=== PATIENT | female | born 1990 | race Caucasian/White ===

== ENCOUNTER 2016-12-20 09:16 | Emergency (ER) | payer OTHER ==
[~2016-12-20] VITALS: Ht 152.4 cm; Wt 113.4 kg
--- NOTE | 2016-12-20 09:25 | NUR ---
Patient ambulated to bed 6. RN evaluating patient at bedside.
[2016-12-20 09:28] VITALS: BP 143/96
--- NOTE | 2016-12-20 09:29 | NUR ---
26/F bib self for R EAR PAIN & sore throat for 3 days. DENIES N/V/D; SKIN IS PINK/WARM/DRY; AAOX4 WITH EVEN AND STEADY GAIT; LUNGS CLEAR BL; HR EVEN AND REGULAR; PT DENIES ANY FEVER, CP, SOB, OR COUGH AT THIS TIME; PATIENT STATES PAIN OF 3/10 AT THIS TIME; VSS; PATIENT POSITIONED FOR COMFORT; HOB ELEVATED; BEDRAILS UP X2; BED DOWN. ER MD MADE AWARE OF PT STATUS.
[2016-12-20 09:50] VITALS: BP 128/90
--- NOTE | 2016-12-20 09:50 | NUR ---
Patient discharged with v/s stable. Written and verbal after care instructions given and explained. Patient alert, oriented and verbalized understanding of instructions. Ambulatory with steady gait. All questions addressed prior to discharge. ID band removed. Patient advised to follow up with PMD. Rx of MOTRIN & AUGMENTIN given. Patient educated on indication of medication including possible reaction and side effects. Opportunity to ask questions provided and answered.
== END 2016-12-20 09:50 | disposition home or self-care (01) ==
LOC: MED 09:16
DX: J02.9 Acute pharyngitis, unspecified (principal)

== ENCOUNTER 2019-07-13 09:30 | Emergency (ER) | payer OTHER ==
[~2019-07-13] VITALS: Ht 152.4 cm; Wt 108.9 kg
--- NOTE | 2019-07-13 09:40 | NUR ---
pt taken to ER bed 12
[2019-07-13 09:41] VITALS: BP 143/71
--- NOTE | 2019-07-13 09:44 | NUR ---
C/O 09/26 RIGHT EAR PAIN X TODAY WITH THROAT PAIN, MOIST COUGH, NASAL CONGESTION X 1 WK. SYMPTOMS WORSE AT NIGHT. DENIES FEVER, N/V, DIZZINESS, CONWAY. APPEARS NAD AT THIS TIME. VSS. HX--DENIES RX--MOTRIN
--- NOTE | 2019-07-13 09:47 | NUR ---
DR. SALEH EVALUATING PT AT BEDSIDE
--- NOTE | 2019-07-13 09:49 | NUR ---
PER DR. SALEH, DO NOT NEED URINE SAMPLE.
[2019-07-13] MEDS ORDERED: hydrOXYzine HCL 25 MG TAB PO ONE (09:55)
[2019-07-13] MEDS ORDERED: MECLIZINE 25 MG TAB PO ONE (09:55)
[2019-07-13] MEDS ORDERED: IBUPROFEN 800 MG TAB PO ONE (09:55)
[2019-07-13 10:20] VITALS: BP 143/71
--- NOTE | 2019-07-13 10:20 | NUR ---
Patient discharged with v/s stable. Written and verbal after care instructions given and explained. Patient alert, oriented and verbalized understanding of instructions. Ambulatory with steady gait. All questions addressed prior to discharge. ID band removed. Patient advised to follow up with PMD. Rx of Promethazine DM, Prednisone, and Azithromycin given. Patient educated on indication of medication including possible reaction and side effects. Opportunity to ask questions provided and answered.
== END 2019-07-13 10:20 | disposition home or self-care (01) ==
LOC: MED 09:30
DX: H65.91 Unspecified nonsuppurative otitis media, right ear (principal); J02.9 Acute pharyngitis, unspecified
CPT/HCPCS: 99284; J8597

== ENCOUNTER 2021-08-23 12:16 | Emergency (ER) | payer OTHER ==
[~2021-08-23] VITALS: Ht 152.4 cm; Wt 111.6 kg
[2021-08-23 12:36] VITALS: BP 126/75
--- NOTE | 2021-08-23 14:00 | NUR ---
31/F PRESENTS TO ED WITH C/O SOB, COUGH AND CONGESTION X2 WEEKS. STATES 2 WEEKS AGO SHE TESTED POSITIVE FOR COVID, STATES SHE WAS GIVEN RX OF ABX AND INHALERS BUT STATES NO RELIEF OF SYMPTOMS. DENIES FEVERS, CHILLS OR SORE THROAT.
[2021-08-23] MEDS ORDERED: ALBUTEROL SULFATE/IPRATROPIU 3 ML SOL IH ONE (14:15)
--- NOTE | 2021-08-23 14:43 | NUR ---
PT TO ER BED 11
[2021-08-23] MEDS ORDERED: PRED15SY34 PO (14:51)
--- NOTE | 2021-08-23 15:10 | NUR ---
Patient discharged with v/s stable. Written and verbal after care instructions given and explained. Patient alert, oriented and verbalized understanding of instructions. Ambulatory with steady gait. All questions addressed prior to discharge. ID band removed. Patient advised to follow up with PMD. Rx of Prednisolone given. Patient educated on indication of medication including possible reaction and side effects. Opportunity to ask questions provided and answered.
== END 2021-08-23 15:10 | disposition home or self-care (01) ==
LOC: MED 12:16
DX: J12.82 Pneumonia due to coronavirus disease 2019 (principal); U07.1 COVID-19; E07.9 Disorder of thyroid, unspecified
CPT/HCPCS: 71045; 93005; 94640; 99283

== ENCOUNTER 2022-10-29 21:19 | Emergency (ER) | payer OTHER ==
[~2022-10-29] VITALS: Ht 152.4 cm; Wt 126.6 kg
[~2022-10-29 21:19] MED LIST: PRED15SO54 PO
[2022-10-29 21:32] VITALS: BP 160/74
[2022-10-29 22:01] LABS: BASOPHILS # (AUTO) 0.1 K/uL (0.00-0.22); EOSINOPHILS # (AUTO) 0.1 K/uL (0-0.4); EOSINOPHILS % (AUTO) 0.8 % (0.0-4.0); HEMOGLOBIN 11.1 g/dL (12.0-16.0); LYMPHOCYTES # (AUTO) 3.2 K/uL (2.5-16.5); LYMPHOCYTES % (AUTO) 24.9 % (20.5-51.1); MEAN CORPUSCULAR HEMOGLOBIN 23 pg (27-31); MEAN CORPUSCULAR HGB CONC 32 g/dL (33-37); MEAN CORPUSCULAR VOLUME 72.3 fL (80-94); MONOCYTES # (AUTO) 0.7 K/uL (0.8-1.0); MONOCYTES % (AUTO) 5.8 % (1.7-9.3); NEUTROPHILS # (AUTO) 8.7 K/uL (1.8-7.7); NEUTROPHILS % (AUTO) 67.5 % (42.2-75.2); PLATELET COUNT (AUTO) 323 K/uL (140-450); RED BLOOD CELL COUNT(AUTO) 4.84 MIL/uL (4.20-5.40); RED CELL DISTRIBUTION WIDTH 16.3 % (11.6-13.7); WHITE BLOOD COUNT (AUTO) 12.9 K/uL (4.8-10.8)
[2022-10-29 22:15] LABS: ALBUMIN 3.6 g/dL (3.4-5.0); ANION GAP 13.1 (8-16); CARBON DIOXIDE 26.6 mmol/L (21-32); CREATININE 0.8 mg/dL (0.6-1.3); POTASSIUM 3.7 mmol/L (3.5-5.1); TOTAL BILIRUBIN 0.5 mg/dL (0.0-1.0)
[2022-10-29 23:58] LABS: APPEARANCE,URINE CLOUDY (CLEAR); BILIRUBIN,URINE 2+ (NEGATIVE); BLOOD, URINE NEGATIVE (NEGATIVE); COLOR,URINE YELLOW (YELLOW); LEUKOCYTE ESTERASE ,URINE NEGATIVE (NEGATIVE); NITRITE, URINE NEGATIVE (NEGATIVE); PH,URINE 5.5 (5.0-9.0); UGLUCOSE NEGATIVE (NEGATIVE)
--- NOTE | 2022-10-30 01:39 | NUR ---
pt to bed 07.
[2022-10-30] MEDS ORDERED: ALUMINUM HYD/MAG/SIMETHICONE 30 ML UDC ONE (02:09)
[2022-10-30] MEDS ORDERED: DICYCLOMINE HCL LIQUID 10 MG/5 ML UDC ONE (02:09)
[2022-10-30] MEDS: DICYCLOMINE HCL LIQUID 20 MG, ALUMINUM HYD/MAG/SIMETHICONE 30 ML, LIDOCAINE VISCOUS 2% ... PO ONE ×3 (02:14)
[2022-10-30] MEDS: KETOROLAC 30 MG/ML VIAL IM ONE (03:09)
[2022-10-30] MEDS ORDERED: MAG-27 PO (04:05)
--- NOTE | 2022-10-30 04:12 | NUR ---
Patient discharged with v/s stable. Written and verbal after care instructions given and explained. New rx mylanta. Patient verbalized understanding. Ambulatory with steady gait. All questions addressed prior to discharge. Advised to follow up with PMD.
[2022-10-30 04:13] VITALS: BP 154/67
== END 2022-10-30 04:12 | disposition home or self-care (01) ==
LOC: MED 21:19
DX: R10.9 Unspecified abdominal pain (principal); E03.9 Hypothyroidism, unspecified; Z79.899 Other long term (current) drug therapy
CPT/HCPCS: 36415; 80053; 81003; 81025; 83690; 85025; 96372; 99283; J1885

== ENCOUNTER 2022-11-03 17:30 | Emergency (ER) | payer OTHER ==
[~2022-11-03] VITALS: Ht 152.4 cm; Wt 123.8 kg
[~2022-11-03 17:30] MED LIST changes: +MAG-27 PO
[2022-11-03 17:36] VITALS: BP 137/79
[2022-11-03 18:13] LABS: BILIRUBIN,URINE 2+ (NEGATIVE); BLOOD, URINE TRACE-I (NEGATIVE); COLOR,URINE YELLOW (YELLOW); LEUKOCYTE ESTERASE ,URINE 1+ (NEGATIVE); NITRITE, URINE NEGATIVE (NEGATIVE); PH,URINE 5.5 (5.0-9.0); UGLUCOSE NEGATIVE (NEGATIVE)
[2022-11-03 18:15] LABS: BASOPHILS # (AUTO) 0.1 K/uL (0.00-0.22); BASOPHILS % (AUTO) 0.8 % (0.0-2.0); EOSINOPHILS # (AUTO) 0.1 K/uL (0-0.4); EOSINOPHILS % (AUTO) 1.3 % (0.0-4.0); HEMATOCRIT 38.6 % (36-48); HEMOGLOBIN 12.4 g/dL (12.0-16.0); LYMPHOCYTES # (AUTO) 2.5 K/uL (2.5-16.5); LYMPHOCYTES % (AUTO) 23.1 % (20.5-51.1); MEAN CORPUSCULAR HEMOGLOBIN 24 pg (27-31); MEAN CORPUSCULAR HGB CONC 32 g/dL (33-37); MEAN CORPUSCULAR VOLUME 72.8 fL (80-94); MONOCYTES # (AUTO) 0.8 K/uL (0.8-1.0); MONOCYTES % (AUTO) 7.4 % (1.7-9.3); NEUTROPHILS # (AUTO) 7.3 K/uL (1.8-7.7); NEUTROPHILS % (AUTO) 67.4 % (42.2-75.2); PLATELET COUNT (AUTO) 323 K/uL (140-450); RED CELL DISTRIBUTION WIDTH 17.4 % (11.6-13.7); WHITE BLOOD COUNT (AUTO) 10.9 K/uL (4.8-10.8)
[2022-11-03 18:20] LABS: APPEARANCE,URINE HAZY (CLEAR)
[2022-11-03 18:27] LABS: RBC,URINE 0-5 /HPF (0-5)
[2022-11-03 18:35] LABS: ALBUMIN 3.6 g/dL (3.4-5.0); ANION GAP 18.1 (8-16); CARBON DIOXIDE 20.7 mmol/L (21-32); CREATININE 0.7 mg/dL (0.6-1.3); POTASSIUM 3.8 mmol/L (3.5-5.1); TOTAL BILIRUBIN 2.8 mg/dL (0.0-1.0)
[2022-11-03] MEDS ORDERED: CIPR500T4 PO (19:26)
[2022-11-03] MEDS ORDERED: ONDA8TAB87 PO (19:26)
--- NOTE | 2022-11-03 19:30 | NUR ---
Pt care report endorsed to me for continuity of care. Pt up in bed in stable condition. Denies any pain/discomfort at this time. Breathing adequately on RA.
[2022-11-03 19:45] VITALS: BP 164/76
--- NOTE | 2022-11-03 19:47 | NUR ---
cIPRO AND zOFRAN Patient discharged with v/s stable. Written and verbal after care instructions given and explained. Patient alert, oriented and verbalized understanding of instructions. All questions addressed prior to discharge. ID band removed. Patient advised to follow up with PMD. Rx of Cipro and Zofran sent to preferred pharmacy. Patient educated on indication of medication including possible reaction and side effects. Opportunity to ask questions provided and answered.
== END 2022-11-03 19:44 | disposition home or self-care (01) ==
LOC: MED 17:30
DX: N39.0 Urinary tract infection, site not specified (principal); R74.01 Elevation of levels of liver transaminase levels; Z79.899 Other long term (current) drug therapy
CPT/HCPCS: 36415; 80053; 81001; 83690; 85025; 87086; 99283

== ENCOUNTER 2022-11-07 19:32 | Emergency (ER) | payer OTHER ==
[~2022-11-07] VITALS: Ht 152.4 cm; Wt 123.8 kg
[~2022-11-07 19:32] MED LIST changes: +CIPR500T4 PO; +ONDA8TAB87 PO
[2022-11-07 19:48] VITALS: BP 110/65
--- NOTE | 2022-11-07 21:05 | NUR ---
Dr. Ochoa examining patient.
--- NOTE | 2022-11-07 21:55 | NUR ---
Blood for labwork drawn by sales superintendent. Patient tolerated well.
--- NOTE | 2022-11-07 21:58 | NUR ---
PT TO BED 09
[2022-11-07 22:07] LABS: BASOPHILS # (AUTO) 0.1 K/uL (0.00-0.22); EOSINOPHILS # (AUTO) 0.1 K/uL (0-0.4); EOSINOPHILS % (AUTO) 1.1 % (0.0-4.0); HEMOGLOBIN 12.9 g/dL (12.0-16.0); LYMPHOCYTES % (AUTO) 30.8 % (20.5-51.1); MEAN CORPUSCULAR HEMOGLOBIN 23 pg (27-31); MEAN CORPUSCULAR HGB CONC 32 g/dL (33-37); MEAN CORPUSCULAR VOLUME 71.9 fL (80-94); MONOCYTES # (AUTO) 0.7 K/uL (0.8-1.0); MONOCYTES % (AUTO) 6.9 % (1.7-9.3); NEUTROPHILS # (AUTO) 5.8 K/uL (1.8-7.7); NEUTROPHILS % (AUTO) 60.2 % (42.2-75.2); PLATELET COUNT (AUTO) 349 K/uL (140-450); RED BLOOD CELL COUNT(AUTO) 5.56 MIL/uL (4.20-5.40); RED CELL DISTRIBUTION WIDTH 18.2 % (11.6-13.7); WHITE BLOOD COUNT (AUTO) 9.6 K/uL (4.8-10.8)
[2022-11-07 22:39] LABS: ALBUMIN 3.7 g/dL (3.4-5.0); ANION GAP 15.9 (8-16); CARBON DIOXIDE 25.7 mmol/L (21-32); CREATININE 0.8 mg/dL (0.6-1.3); POTASSIUM 3.6 mmol/L (3.5-5.1); TOTAL BILIRUBIN 3.8 mg/dL (0.0-1.0)
[2022-11-07 23:25] VITALS: BP 110/65
--- NOTE | 2022-11-07 23:25 | NUR ---
Patient discharged with v/s stable. Written and verbal after care instructions given and explained. Patient verbalized understanding. Ambulatory with steady gait. All questions addressed prior to discharge. Advised to follow up with PMD. pt left with her belongings.
== END 2022-11-07 23:25 | disposition home or self-care (01) ==
LOC: MED 19:32
DX: K80.20 Calculus of gallbladder without cholecystitis without obstruction (principal); E80.7 Disorder of bilirubin metabolism, unspecified; E03.9 Hypothyroidism, unspecified; Z79.899 Other long term (current) drug therapy
CPT/HCPCS: 36415; 76705; 80053; 83690; 85025; 99284; Q0092

== ENCOUNTER 2023-12-17 09:00 | Emergency (ER) | payer OTHER ==
[~2023-12-17] VITALS: Ht 152.4 cm; Wt 109.3 kg
[2023-12-17 09:05] VITALS: BP 148/79; PULSE 86; RESP 18; TEMP 97.5; O2SAT 100
[2023-12-17] MEDS ORDERED: ATA25 PO (09:29)
== END 2023-12-17 09:43 | disposition home or self-care (01) ==
LOC: MED 09:00
DX: R00.2 Palpitations (principal); F43.9 Reaction to severe stress, unspecified; G44.209 Tension-type headache, unspecified, not intractable; R03.0 Elevated blood-pressure reading, without diagnosis of hypertension; Z86.39 Personal history of other endocrine, nutritional and metabolic disease; Z87.19 Personal history of other diseases of the digestive system; Z79.1 Long term (current) use of non-steroidal anti-inflammatories (NSAID); Z79.2 Long term (current) use of antibiotics; Z79.899 Other long term (current) drug therapy
CPT/HCPCS: 93005; 99283